=== PATIENT | male | born 1945 | race Caucasian/White ===

== ENCOUNTER 2018-02-25 19:50 | Observation (INO) | payer MEDICARE, OTHER ==
[2018-02-25 20:08] LABS: BASOPHILS % (AUTO) 0 % (0-3); EOSINOPHILS % (AUTO) 0 % (0-9); HEMATOCRIT 48 % (39-53); HEMOGLOBIN 16.6 gm/dl (13.5-17.7); LYMPHOCYTES % (AUTO) 6.3 % (10-50); MEAN CORPUSCULAR HEMOGLOBIN 32.2 pg (27.0-32.0); MEAN CORPUSCULAR HGB CONC 34.4 gm/dl (32.0-36.0); MEAN CORPUSCULAR VOLUME 93 fL (80-100); MONOCYTES % (AUTO) 5.5 % (0-12); NEUTROPHILS % (AUTO) 87.5 % (37-80)
[2018-02-25 20:12] LABS: APPEARANCE,URINE Clear; BILIRUBIN,URINE NEGATIVE (NEGATIVE); COLOR,URINE Dark yellow; GLUCOSE, URINE (UA) TRACE (NEGATIVE); KETONES,URINE NEGATIVE (NEGATIVE); LEUKOCYTE ESTERASE ,URINE NEGATIVE (NEGATIVE); NITRATE,URINE NEGATIVE (NEGATIVE); OCCULT BLOOD,URINE NEGATIVE (NEG-TRACE); UROBILINOGEN,URINE 0.2 (0.2-1.0 EU)
[2018-02-25] MEDS ORDERED: SODIUM CHLORIDE 0.9% 1000ML 1,000 ML IV ONE (20:22)
[2018-02-25 20:27] LABS: ALBUMIN 3.8 gm/dl (3.4-5.0); ALKALINE PHOSPHATASE 131 IU/L (46-116); ALT 36 IU/L (14-63); AST 39 IU/L (15-37); BILIRUBIN,TOTAL 0.6 mg/dl (0.2-1.0); BLOOD UREA NITROGEN 14 mg/dl (7-18); CALCIUM 8.5 mg/dl (8.5-10.1); CARBON DIOXIDE 28.4 mEq/L (21-32); CHLORIDE 99 mMol/L (98-107); CREATININE 0.99 mg/dl (0.80-1.30); GLOM FILT RATE 74 mL/min (>60); GLUCOSE 168 mg/dl (74-106); POTASSIUM 4.9 mMol/L (3.5-5.1); SODIUM 133 mMol/L (136-145); TOTAL PROTEIN 7.6 gm/dl (6.4-8.2); TROP I < 0.017 ng/ml (0.000-0.056)
[2018-02-25 20:29] LABS: AMPHETAMINES NEGATIVE (NEGATIVE); BACTERIA TRACE (< 1+); BARBITUATES NEGATIVE (NEGATIVE); BENZODIAZEPINES NEGATIVE (NEGATIVE); CANNABINOL(THC) NEGATIVE (NEGATIVE); COCAINE(COC) NEGATIVE (NEGATIVE); CRYSTALS NEGATIVE (0-3 AVE/HPF); EPITHELIAL CELLS NEGATIVE (SQUAMOUS); METHAMPHETAMINES NEGATIVE (NEGATIVE); OPIATES(OP13) POSITIVE (NEGATIVE); OXYCODONE(OXY) POSITIVE (NEGATIVE); PROPOXYPHENE(PPX) NEGATIVE (NEGATIVE); RBC,URINE NEGATIVE (0-3AV/HPF); WBC,URINE NEGATIVE (0-5AV/HPF)
[2018-02-25 20:31] LABS: ALCOHOL < 0.003 gm/dl (0.000-0.08)
[2018-02-25 21:01] LABS: THYROID STIMULATING HORMONE 1.128 uIU/ml (0.358-3.740)
[2018-02-25 21:26] VITALS: RESP 18
[2018-02-25] MEDS ORDERED: MAGNESIUM HYDROXIDE 30 ML SUS PO PRN (21:28)
[2018-02-25] MEDS ORDERED: METHOCARBAMOL 500 MG TAB PO PRN (21:28)
[2018-02-25] MEDS ORDERED: ACETAMINOPHEN 325 MG PO PRN (21:28)
[2018-02-25] MEDS ORDERED: TEMAZEPAM 15MG 15 MG CAP PO PRN (21:31)
[2018-02-26] MEDS: OXYCODONE HYDROCHLORIDE 5 MG TAB PO PRN ×3 (01:39→09:28)
[2018-02-26] MEDS ORDERED: LEVOTHYROXINE SODIUM 50 MCG TAB PO SCH (07:00)
[2018-02-26] MEDS ORDERED: OMEPRAZOLE 20 MG CAPSULE PO SCH (07:00)
[2018-02-26 07:49] VITALS: BP 118/65; PULSE 91; TEMP 97.9; O2SAT 88
[2018-02-26] MEDS ORDERED: SAXAGLIPTIN 5 MG PO SCH (09:00)
[2018-02-26] MEDS ORDERED: PANTOPRAZOLE SODIUM 40 MG ECT PO SCH (09:00)
[2018-02-26] MEDS ORDERED: ASPIRIN EC 81 MG PO SCH (09:00)
[2018-02-26] MEDS ORDERED: PREGABALIN 50 MG CAP PO SCH (09:00)
[2018-02-26] MEDS ORDERED: DULOXETINE HCL 30 MG CAPSULE.DR PO SCH (09:00)
[2018-02-26] MEDS ORDERED: ALFUZOSIN HCL 10 MG PO SCH (09:00)
[2018-02-26] MEDS ORDERED: LORATADINE 10 MG TAB PO SCH (09:00)
[2018-02-26] MEDS ORDERED: LISINOPRIL 5 MG TAB PO SCH (09:00)
[2018-02-26] MEDS ORDERED: DULOXETINE HYDROCHLORIDE 60 MG ECC PO SCH (09:00)
[2018-02-26] MEDS ORDERED: METOPROLOL SUCCINATE 25 MG TAB.ER.24H PO SCH (09:00)
[2018-02-26] MEDS ORDERED: SENNOSIDES A AND B 8.6 MG TAB PO SCH (21:00)
[2018-02-26] MEDS ORDERED: PRAVASTATIN SODIUM 20 MG TAB PO SCH (21:00)
[2018-02-26] MEDS ORDERED: TRAZODONE HYDROCHLORIDE 50 MG TAB PO SCH (21:00)
[2018-02-26] MEDS ORDERED: DOCUSATE SODIUM 100 MG SGL PO SCH (21:00)
== END 2018-02-26 15:55 | disposition home or self-care (01) | DRG 946 ==
LOC: ED 19:50 → ACUTE CARE 21:23
PROVIDERS: ADMIT Family Medicine; ATTEND Family Medicine
PROC: F01ZDZZ Gait and/or Balance Assessment (ICD-10-PCS; principal; 2018-02-26)
DX: R41.0 Disorientation, unspecified (principal); E11.9 Type 2 diabetes mellitus without complications; I25.10 Atherosclerotic heart disease of native coronary artery without angina pectoris; E03.9 Hypothyroidism, unspecified; G89.29 Other chronic pain; R40.2142 Coma scale, eyes open, spontaneous, at arrival to emergency department; R40.2362 Coma scale, best motor response, obeys commands, at arrival to emergency department; R40.2242 Coma scale, best verbal response, confused conversation, at arrival to emergency department; I67.9 Cerebrovascular disease, unspecified
CPT/HCPCS: 70450; 80053; 80305; 80307; 81001; 82140; 82962; 84443; 84484; 85025; 93005; 96365; 99219; 99284; A9270-GY